=== PATIENT | male | born 1955 | race Two or more races ===

== ENCOUNTER 2024-09-10 21:21 | Inpatient (IN) | payer MEDICAID ==
[~2024-09-10] VITALS: Ht 170.2 cm; Wt 55.3 kg
[2024-09-10] MEDS ORDERED: CEFEPIME 1 GM VIAL ONE (21:44)
[2024-09-10] MEDS ORDERED: ACETAMINOPHEN ES 500 MG TABLET ONE (21:44)
[2024-09-10] MEDS ORDERED: VANCOMYCIN 1 GM /D5W 250 ML PB IV ONE (21:44)
[2024-09-10 21:50] LABS: MONOCYTES # (AUTO) 1.8 K/uL (0.1-1.30); RED BLOOD CELL COUNT(AUTO) 3.28 MIL/uL (4.5-6.0)
[2024-09-10 22:08] LABS: BASOPHILS # (AUTO) 0.2 K/uL (0.0-0.2); BASOPHILS % (AUTO) 0.7 % (0.0-2.0); CALCIUM, SERUM 9.5 mg/dL (8.5-10.1); CARBON DIOXIDE 19 mmol/L (21-32); CHLORIDE 104 mmol/L (98-107); GLUCOSE 254 mg/dL (74-106); HEMATOCRIT 33 % (39-51); HEMOGLOBIN 10.7 g/dL (13.5-17.5); INR 1.06 (0.91-1.10); LYMPHOCYTES # (AUTO) 0.7 K/uL (0.8-4.8); MEAN CORPUSCULAR HEMOGLOBIN 33 PG (26.0-33.0); MEAN CORPUSCULAR HGB CONC 32 g/dl (31.0-36.0); MEAN CORPUSCULAR VOLUME 100 fL (80-96); MONOCYTES % (AUTO) 5.4 % (2.0-12.0); NEUTROPHILS # (AUTO) 30.7 K/uL (1.8-8.9); NEUTROPHILS % (AUTO) 91.9 % (43.0-81.0); PARTIAL THROMBOPLASTIN TIME 23.9 SEC (24.3-34.3); PLATELET COUNT (AUTO) 628 K/uL (150-450); POTASSIUM 5.2 mmol/L (3.5-5.1); PROTHROMBIN TIME 11.2 SECS (9.2-11.1); RED CELL DISTRIBUTION WIDTH 16.2 % (11.5-15.0); SODIUM SERUM 132 mmol/L (136-145); UREA NITROGEN, BLOOD 22 mg/dL (7-18)
[2024-09-10 22:10] LABS: WHITE BLOOD COUNT (AUTO) 33.5 K/uL (4.3-11.0)
[2024-09-10] MEDS: CEFEPIME 1 GM in IV D5W 50 ML IV ONE (22:12)
[2024-09-10] MEDS: VANCOMYCIN 1 GM in IV D5W 250 ML IV ONE (22:12)
[2024-09-10] MEDS: IV NS 0.9% 1,000 ML BAG IV ONE (22:12)
[2024-09-10] MEDS: ACETAMINOPHEN ES 500 MG TABLET PO ONE (22:12)
[2024-09-10 22:15] LABS: ALANINE AMINOTRANSFERASE 25 U/L (12-78); ALBUMIN 3.1 g/dL (3.4-5.0); ALKALINE PHOSPHATASE 149 U/L (46-116); ASPARTATE AMINOTRANSFERASE 19 U/L (15-37); BILIRUBIN,DIRECT 0.1 mg/dL (0.0-0.2); BILIRUBIN,TOTAL 0.3 mg/dL (0.2-1.0); TOTAL PROTEIN, SERUM 8.5 g/dL (6.4-8.2)
[2024-09-10 22:16] LABS: APPEARANCE,URINE CLEAR (CLEAR); BILIRUBIN,URINE NEGATIVE (NEGATIVE); BLOOD, URINE NEGATIVE Ery/uL (NEGATIVE); COLOR,URINE YELLOW (YELLOW); KETONES,URINE TRACE mg/dL (NEGATIVE); LEUKOCYTE ESTERASE ,URINE NEGATIVE (NEGATIVE); NITRITE, URINE NEGATIVE (NEGATIVE); PROTEIN,URINE NEGATIVE (NEGATIVE); UGLUCOSE NEGATIVE (NEGATIVE); UROBILINOGEN,URINE 0.2 EU/dL (0.2)
[2024-09-10 22:17] LABS: LACTIC ACID 10.5 mmol/L (0.4-2.0)
[2024-09-10 22:58] LABS: BAND % (MANUAL) 1 % (0.0-5.0); LYMPHOCYTES % (MANUAL) 3 % (16-48); MONOCYTES % (MANUAL) 5 % (0-11.0); NEUTROPHILS % (MANUAL) 91 (42-76); PLATELET ESTIMATE INCREASED
[2024-09-11] MEDS ORDERED: ONDANSETRON HCL/PF 4 MG/2 ML VIAL IVP PRN
[2024-09-11] MEDS ORDERED: MAG HYDROX/AL HYDROX/SIMETH 30 ML UDC PO PRN
[2024-09-11] MEDS ORDERED: MAGNESIUM HYDROXIDE 30 ML UDC PO PRN
[2024-09-11] MEDS ORDERED: Z GUARD REMEDY 4 OZ OINT TP PRN
[2024-09-11] MEDS ORDERED: ZOLPIDEM TARTRATE 5 MG TABLET PO PRN
[2024-09-11 00:30] LABS: AMPHETAMINE, URINE NEGATIVE (NEGATIVE); BARBITURATE, URINE NEGATIVE (NEGATIVE); BENZODIAZEPINE, URINE NEGATIVE (NEGATIVE); CANNABINOID, URINE NEGATIVE (NEGATIVE); COCCAINE, URINE NEGATIVE (NEGATIVE); OPIATE, URINE NEGATIVE (NEGATIVE); PHENCYCLIDINE SCREEN,URINE NEGATIVE (NEGATIVE)
[2024-09-11 00:45] LABS: ADD URINE CULTURE NO; BACTERIA,URINE Rare /HPF (None Seen); RBC,URINE 0-2 /HPF (0-2); WBC,URINE NONE SEEN /HPF (0-3)
[2024-09-11 00:46] LABS: HYALINE CASTS, URINE Few /LPF (None Seen); MUCUS,URINE Moderate /LPF (None Seen)
[2024-09-11] MEDS ORDERED: SODIUM POLYSTYRENE SULFONATE 15 G/60 ML BOTTLE ONE (00:52)
[2024-09-11 01:00] LABS: BASOPHILS # (AUTO) 0.1 K/uL (0.0-0.2); BASOPHILS % (AUTO) 0.3 % (0.0-2.0); HEMATOCRIT 27 % (39-51); HEMOGLOBIN 8.5 g/dL (13.5-17.5); LYMPHOCYTES # (AUTO) 1.2 K/uL (0.8-4.8); LYMPHOCYTES % (AUTO) 3.9 % (20.0-44.0); MEAN CORPUSCULAR HEMOGLOBIN 31 PG (26.0-33.0); MEAN CORPUSCULAR HGB CONC 32 g/dl (31.0-36.0); MEAN CORPUSCULAR VOLUME 99 fL (80-96); MONOCYTES # (AUTO) 2.1 K/uL (0.1-1.30); NEUTROPHILS # (AUTO) 26.4 K/uL (1.8-8.9); NEUTROPHILS % (AUTO) 88.8 % (43.0-81.0); PLATELET COUNT (AUTO) 477 K/uL (150-450); WHITE BLOOD COUNT (AUTO) 29.7 K/uL (4.3-11.0)
[2024-09-11] MEDS: SODIUM POLYSTYRENE SULFONATE 15 G/60 ML BOTTLE PO ONE (01:35)
[2024-09-11] MEDS: IV NS 0.9% 1,000 ML IV PRN (01:47)
[2024-09-11 04:00] VITALS: BP 97/60; TEMP 98; O2SAT 99
[2024-09-11 06:38] LABS: BASOPHILS # (AUTO) 0.1 K/uL (0.0-0.2); BASOPHILS % (AUTO) 0.4 % (0.0-2.0); EOSINOPHILS % (AUTO) 0.3 % (0.0-6.0); HEMATOCRIT 28 % (39-51); LYMPHOCYTES # (AUTO) 1.2 K/uL (0.8-4.8); LYMPHOCYTES % (AUTO) 7.4 % (20.0-44.0); MEAN CORPUSCULAR HEMOGLOBIN 32 PG (26.0-33.0); MEAN CORPUSCULAR HGB CONC 32 g/dl (31.0-36.0); MEAN CORPUSCULAR VOLUME 101 fL (80-96); MONOCYTES # (AUTO) 1.4 K/uL (0.1-1.30); MONOCYTES % (AUTO) 8.6 % (2.0-12.0); NEUTROPHILS # (AUTO) 13.7 K/uL (1.8-8.9); NEUTROPHILS % (AUTO) 83.3 % (43.0-81.0); PLATELET COUNT (AUTO) 458 K/uL (150-450); RED BLOOD CELL COUNT(AUTO) 2.78 MIL/uL (4.5-6.0); RED CELL DISTRIBUTION WIDTH 16.4 % (11.5-15.0); WHITE BLOOD COUNT (AUTO) 16.4 K/uL (4.3-11.0)
[2024-09-11 06:52] LABS: CALCIUM, SERUM 8.6 mg/dL (8.5-10.1); CREATININE 0.6 mg/dL (0.6-1.3); MAGNESIUM 2.2 mg/dL (1.8-2.4); PHOSPHORUS 4.1 mg/dL (2.5-4.9); POTASSIUM 3.9 mmol/L (3.5-5.1)
[2024-09-11 06:58] LABS: LACTIC ACID 1.4 mmol/L (0.4-2.0)
[2024-09-11 08:00] VITALS: BP 93/61; TEMP 98.1; O2SAT 99
[2024-09-11] MEDS: PANTOPRAZOLE 40 MG TABLET.DR PO SCH (08:31)
[2024-09-11] MEDS: VANCOMYCIN 750 MG in IV D5W 250 ML IV SCH (09:09)
[2024-09-11] MEDS: CEFEPIME 2 GM in IV D5W 100 ML IV SCH (09:22)
[2024-09-11 12:00] VITALS: BP 95/63; TEMP 97.7; O2SAT 100; O2SAT 99
[2024-09-11] MEDS: ZOSYN IVPB 3.375 G in IV D5W 50ml IV SCH (15:35)
[2024-09-11 16:00] VITALS: BP 103/64; TEMP 98.3; O2SAT 98
[2024-09-11 18:00] VITALS: BP 103/64; TEMP 98.3; O2SAT 97
[2024-09-11 20:00] VITALS: BP 110/76; TEMP 98.3; O2SAT 100
[2024-09-12] VITALS: BP 113/71; TEMP 99; O2SAT 100
[2024-09-12 04:00] VITALS: BP 110/70; TEMP 98.7; O2SAT 100
[2024-09-12 07:22] LABS: BASOPHILS # (AUTO) 0.1 K/uL (0.0-0.2); EOSINOPHILS # (AUTO) 0.1 K/uL (0.0-0.7); EOSINOPHILS % (AUTO) 0.8 % (0.0-6.0); HEMATOCRIT 31 % (39-51); LYMPHOCYTES # (AUTO) 1.1 K/uL (0.8-4.8); LYMPHOCYTES % (AUTO) 10.5 % (20.0-44.0); MEAN CORPUSCULAR HEMOGLOBIN 32 PG (26.0-33.0); MEAN CORPUSCULAR HGB CONC 33 g/dl (31.0-36.0); MEAN CORPUSCULAR VOLUME 98 fL (80-96); MONOCYTES # (AUTO) 1.2 K/uL (0.1-1.30); MONOCYTES % (AUTO) 11.1 % (2.0-12.0); NEUTROPHILS # (AUTO) 7.9 K/uL (1.8-8.9); NEUTROPHILS % (AUTO) 76.6 % (43.0-81.0); PLATELET COUNT (AUTO) 473 K/uL (150-450); RED BLOOD CELL COUNT(AUTO) 3.13 MIL/uL (4.5-6.0); RED CELL DISTRIBUTION WIDTH 15.6 % (11.5-15.0); WHITE BLOOD COUNT (AUTO) 10.4 K/uL (4.3-11.0)
[2024-09-12 07:33] LABS: CALCIUM, SERUM 8.6 mg/dL (8.5-10.1); CREATININE 0.5 mg/dL (0.6-1.3); POTASSIUM 3.6 mmol/L (3.5-5.1)
[2024-09-12 08:05] VITALS: BP 116/76; TEMP 99.5; O2SAT 100
[2024-09-12] MEDS: ACETAMINOPHEN 325 MG TABLET PO PRN (10:38)
[2024-09-12 12:21] VITALS: BP 111/69; TEMP 98.1; O2SAT 99
[2024-09-12 14:26] LABS: HIV-1 p24 ANTIGEN NON REACTIVE (NONREACTIVE); HIV-1/2 ANTIBODY NON REACTIVE (NONREACTIVE)
[2024-09-12 16:25] VITALS: BP 102/71; TEMP 97.6; O2SAT 100
[2024-09-12 17:21] LABS: THYROID STIMULATING HORMONE 1.78 uIU/mL (0.358-3.74)
[2024-09-12 18:32] LABS: OCCULT BLOOD STOOL NEGATIVE (NEGATIVE)
[2024-09-12 20:00] VITALS: BP 98/55; TEMP 98.1; O2SAT 100
[2024-09-13 04:00] VITALS: BP 108/71; TEMP 98.5
[2024-09-13 08:05] VITALS: BP 118/76; TEMP 97.7; O2SAT 100
[2024-09-13 08:22] LABS: BASOPHILS # (AUTO) 0.1 K/uL (0.0-0.2); BASOPHILS % (AUTO) 0.8 % (0.0-2.0); EOSINOPHILS # (AUTO) 0.1 K/uL (0.0-0.7); EOSINOPHILS % (AUTO) 1.2 % (0.0-6.0); HEMATOCRIT 29 % (39-51); HEMOGLOBIN 9.6 g/dL (13.5-17.5); LYMPHOCYTES # (AUTO) 1.5 K/uL (0.8-4.8); LYMPHOCYTES % (AUTO) 16.9 % (20.0-44.0); MEAN CORPUSCULAR HEMOGLOBIN 32 PG (26.0-33.0); MEAN CORPUSCULAR HGB CONC 33 g/dl (31.0-36.0); MEAN CORPUSCULAR VOLUME 97 fL (80-96); MONOCYTES % (AUTO) 11.4 % (2.0-12.0); NEUTROPHILS # (AUTO) 6.4 K/uL (1.8-8.9); NEUTROPHILS % (AUTO) 69.7 % (43.0-81.0); PLATELET COUNT (AUTO) 472 K/uL (150-450); RED CELL DISTRIBUTION WIDTH 14.9 % (11.5-15.0); WHITE BLOOD COUNT (AUTO) 9.1 K/uL (4.3-11.0)
[2024-09-13 08:42] LABS: CALCIUM, SERUM 8.4 mg/dL (8.5-10.1); CREATININE 0.5 mg/dL (0.6-1.3); POTASSIUM 3.3 mmol/L (3.5-5.1)
[2024-09-13] MEDS: POTASSIUM CHLORIDE 20 MEQ TAB.PRT.SR PO SCH (09:52)
[2024-09-13] MEDS ORDERED: POTASSIUM CHLORIDE 20 MEQ POWDER PACKET PO SCH (10:30)
[2024-09-13] MEDS: SOD FERRIC GLUC 125 MG in IV NS 0.9% 100 ML IV SCH (13:52)
[2024-09-13] MEDS: PIPERACILLIN /TAZOBACTAM 3.375 G in IV D5W 100 ML IV SCH (16:06)
[2024-09-13 16:15] VITALS: BP 111/73; TEMP 97.6; O2SAT 100
[2024-09-13 20:00] VITALS: BP 115/70; TEMP 98.2; O2SAT 97
[2024-09-14 04:00] VITALS: BP 122/78; TEMP 97.5; O2SAT 99
[2024-09-14 07:47] LABS: BASOPHILS # (AUTO) 0.1 K/uL (0.0-0.2); BASOPHILS % (AUTO) 1.5 % (0.0-2.0); EOSINOPHILS # (AUTO) 0.1 K/uL (0.0-0.7); EOSINOPHILS % (AUTO) 1.6 % (0.0-6.0); HEMATOCRIT 32 % (39-51); HEMOGLOBIN 10.6 g/dL (13.5-17.5); LYMPHOCYTES # (AUTO) 1.6 K/uL (0.8-4.8); LYMPHOCYTES % (AUTO) 19.9 % (20.0-44.0); MEAN CORPUSCULAR HEMOGLOBIN 32 PG (26.0-33.0); MEAN CORPUSCULAR HGB CONC 33 g/dl (31.0-36.0); MEAN CORPUSCULAR VOLUME 97 fL (80-96); MONOCYTES # (AUTO) 0.8 K/uL (0.1-1.30); MONOCYTES % (AUTO) 9.7 % (2.0-12.0); NEUTROPHILS # (AUTO) 5.4 K/uL (1.8-8.9); NEUTROPHILS % (AUTO) 67.3 % (43.0-81.0); PLATELET COUNT (AUTO) 500 K/uL (150-450); RED BLOOD CELL COUNT(AUTO) 3.32 MIL/uL (4.5-6.0); WHITE BLOOD COUNT (AUTO) 8.1 K/uL (4.3-11.0)
[2024-09-14 07:53] LABS: CALCIUM, SERUM 8.9 mg/dL (8.5-10.1); CREATININE 0.5 mg/dL (0.6-1.3); POTASSIUM 3.8 mmol/L (3.5-5.1)
[2024-09-14 08:00] VITALS: BP 119/79; TEMP 97.9; O2SAT 100
[2024-09-15 00:06] LABS: HEPATITIS A AB, IgM Negative (Negative); HEPATITIS A AB, TOTAL Positive (Negative); HEPATITIS B CORE AB, TOTAL Negative (Negative); HEPATITIS B SURFACE AB Non Reactive (.)
[2024-09-15 09:11] LABS: IMMUNOGLOBULIN A, SERUM 566 mg/dL (61-437); IMMUNOGLOBULIN G, SERUM 1858 mg/dL (603-1613); IMMUNOGLOBULIN M, SERUM 154 mg/dL (20-172)
[2024-09-15 12:10] LABS: FREE KAPPA LT CHAINS SERUM 56.5 mg/L (3.3-19.4); FREE LAMBDA LT CHAIN SERUM 52.2 mg/L (5.7-26.3); KAPPA/LAMBDA RATIO SERUM 1.08 (0.26-1.65)
[2024-09-16 01:07] LABS: FOLIC ACID 9.3 ng/mL (>3.0)
[2024-09-16 16:13] LABS: *SPE A/G RATIO 0.6 (0.7-1.7); *SPE ALBUMIN 2.6 g/dL (2.9-4.4); *SPE ALPHA-1-GLOBULIN 0.4 g/dL (0.0-0.4); *SPE ALPHA-2-GLOBULIN 0.9 g/dL (0.4-1.0); *SPE BETA GLOBULIN 1.4 g/dL (0.7-1.3); *SPE GLOBULIN, TOTAL 4.6 g/dL (2.2-3.9); *SPE M-SPIKE Not Observed g/dL (Not Observed); *SPE PROTEIN TOTAL 7.2 g/dL (6.0-8.5); *SPEGAMMA GLOBULIN 1.9 g/dL (0.4-1.8)
== END 2024-09-14 16:27 | disposition home or self-care (01) | DRG 720 ==
LOC: ER 21:24 → MEDSG1 09-11 00:28 → TELE1 09-11 08:00 → MEDSG1 09-12 19:07
PROVIDERS: ADMIT Nurse Practitioner Family
DX: A41.9 Sepsis, unspecified organism (principal); E87.20 Acidosis, unspecified; E87.1 Hypo-osmolality and hyponatremia; K56.7 Ileus, unspecified; D53.9 Nutritional anemia, unspecified; D49.0 Neoplasm of unspecified behavior of digestive system; K52.9 Noninfective gastroenteritis and colitis, unspecified; D75.839 Thrombocytosis, unspecified; E87.5 Hyperkalemia; G89.29 Other chronic pain; M10.9 Gout, unspecified; Z59.00 Homelessness unspecified; Z20.822 Contact with and (suspected) exposure to COVID-19; R73.9 Hyperglycemia, unspecified; I10 Essential (primary) hypertension; N39.0 Urinary tract infection, site not specified
CPT/HCPCS: 36415; 71045-TC; 71250-TC; 80048-TC; 80076-TC; 80202-TC; 81001; 82272-TC; 82378; 82607-TC; 82728-TC; 82784; 83540-TC; 83605-TC; 83735-TC; 84100-TC; 84155; 84165; 84443-TC; 84484-TC; 85025-TC; 85730-TC; 86334; 86704; 86706; 86709; 86709-TC; 86803; 87040-TC; 87081-TC; 87086-TC; 87340; 87806; 89055; 97116-TC; 97530-TC; 98960; A4223; G0378; J0692; J2543; J2916; J3370; J3371; J7030; J7060